=== PATIENT | male | born 1950 | race Caucasian/White ===

== ENCOUNTER 2024-08-09 08:16 | Outpatient (CLI) | payer MEDICARE, OTHER | END 2024-08-09 08:17 | disposition home or self-care (01) | LOC: RAD 08:16 | PROVIDERS: ATTEND Internal Medicine Critical Care Medicine | DX: R06.00 Dyspnea, unspecified (principal); J43.9 Emphysema, unspecified; J98.4 Other disorders of lung | CPT/HCPCS: 71046 ==